=== PATIENT | female | born 1980 | race African-American/Black ===

== ENCOUNTER 2017-05-20 23:50 | Emergency (ER) | payer MEDICAID ==
[~2017-05-20] VITALS: Ht 162.6 cm; Wt 75.0 kg
[2017-05-21 00:04] VITALS: BP 117/69
== END 2017-05-21 02:05 | disposition left against medical advice (07) ==
LOC: ER 23:50
DX: R07.9 Chest pain, unspecified (principal); Z53.21 Procedure and treatment not carried out due to patient leaving prior to being seen by health care provider